=== PATIENT | male | born 1990 | race African-American/Black ===

== ENCOUNTER 2020-01-03 00:08 | Emergency (ER) | payer SELFPAY ==
[~2020-01-03] VITALS: Ht 188 cm; Wt 109.1 kg
[2020-01-03 00:18] VITALS: BP 132/81; Ht 188 cm; Wt 109.1 kg
[2020-01-03] MEDS ORDERED: INVOKANA100 MG PO (00:19)
[2020-01-03] MEDS ORDERED: COZAAR50 MG PO (00:19)
[2020-01-03] MEDS ORDERED: CLOMID (00:19)
== END 2020-01-03 00:49 | disposition home or self-care (01) ==
LOC: D.ER 00:08
DX: Z00.00 Encounter for general adult medical examination without abnormal findings (principal); E11.9 Type 2 diabetes mellitus without complications; I10 Essential (primary) hypertension